=== PATIENT | male | born 1960 | race Caucasian/White ===

== ENCOUNTER → 2017-05-12 | Outpatient (CLI) | payer BC ==
--- NOTE | 2017-05-13 11:18 | Diagnostic Imaging Report ---
Indication: Dyspnea Comparison: None 2 views of the chest obtained. Findings: Heart size is normal. Lungs are clear. Aorta is mildly enlarged consistent with atherosclerotic disease. Bones are unremarkable. Impression: No acute disease
== END | disposition home or self-care (01) ==
LOC: RAD 16:01
DX: Z01.818 Encounter for other preprocedural examination (principal); R05 Cough
CPT/HCPCS: 71020